=== PATIENT | female | born 1960 | race Caucasian/White ===

== ENCOUNTER 2017-01-22 06:17 | Day surgery (SDC) | payer OTHER ==
[~2017-01-22] VITALS: Ht 160 cm; Wt 72.0 kg
[2017-01-22 07:00] VITALS: Ht 160 cm; Wt 72.0 kg
[2017-01-22 07:13] VITALS: BP 110/55; PULSE 74; RESP 18
[2017-01-22] MEDS ORDERED: FENTAnyl 50 MCG/ML VIAL ONE (08:16)
[2017-01-22] MEDS ORDERED: MIDAZOLAM 1 MG/ML 2 ML INJ ONE ×2 (08:16)
[2017-01-22 08:41] VITALS: BP 109/75; PULSE 72; RESP 18
--- NOTE | 2017-01-22 11:29 | GILP ---
DATE OF PROCEDURE: 01/22/2017 NAME OF PROCEDURE: Colonoscopy. SURGEON: Patricia Burt MD PREOPERATIVE DIAGNOSIS: Screening colonoscopy. POSTOPERATIVE DIAGNOSES: 1. Colonoscopy all the way to the cecum. Poor prep making the exam somewhat suboptimal. 2. Internal hemorrhoids. 3. No gross neoplasm was identified. INDICATION FOR THE PROCEDURE: Ms. Juliette Vaughan is a 56-year-old female patient who was scheduled for screening colonoscopy. The procedure and possible complications are well explained to the patient, she understood and conse nted to the procedure. DESCRIPTION OF PROCEDURE: Under the influence of fentanyl and Versed, the colonoscope was carefully introduced in the rectum and under direct vision, it was advanced all the way to the cecum. FINDINGS: The patient had internal hemorrhoids. She had poor prep, making the exam somewhat subopt imal. No gross neoplasm was identified. She tolerated the procedure very well and there was no complication from the procedure. At the end of the procedure, she was awake with stable vital signs and she was discharged home to the care of h er family. IMPRESSION: 1. Colonoscopy all the way to the cecum. 2. Poor prep, making the exam somewhat suboptimal. 3. Internal hemorrhoids. 4. No gross neoplasm was identified. PLAN: Consider next screening colonoscopy in 3 years with better preparation because of the subopti mal nature of this examination. Dictated By: PATRICIA BURT MD GD/NTS Conf#: [id number] DID#: [id number] CC: PATRICIA BURT MD;*EndCC*
== END 2017-01-22 08:42 | disposition home or self-care (01) ==
LOC: GIL 06:17 → MERGE 06:17 → GIL 06:24
PROVIDERS: ATTEND Internal Medicine Gastroenterology
DX: Z12.11 Encounter for screening for malignant neoplasm of colon (principal); K64.8 Other hemorrhoids
CPT/HCPCS: 45378; J2250; J3010; Z7610